=== PATIENT | female | born 1935 | race Caucasian/White ===

== ENCOUNTER 2024-11-23 16:06 | Inpatient (IN) | payer MEDICARE, OTHER ==
[~2024-11-23] VITALS: Ht 170.2 cm; Wt 63.4 kg
[2024-11-23 16:32] LABS: BASOPHILS 0.6 % (0.1-1.2); EOSINOPHILS 3.7 % (0.7-5.8); LYMPHOCYTES 18.8 % (19.3-51.7); MCH 21.2 PG (25.6-32.2); MCHC 27.7 g/dL (32.2-35.5); MCV 76.5 fL (79.4-94.8); MONOCYTES 13.3 % (4.7-12.5); NEUTROPHILS 63.5 % (34.0-71.1); RBC 3.02 M/uL (3.93-5.22)
[2024-11-23 16:52] LABS: ALT (SGPT) 25.0 U/L (14-59); AST (SGOT) 26.0 U/L (15-37); GLOMERULAR FILTRATION RATE,EST 28.0 mL/min (>60); PROTEIN, TOTAL 7.2 g/dL (6.4-8.2); UREA NITROGEN 20.0 mg/dL (7-18)
[2024-11-23] MEDS ORDERED: POTASSIUM CHLORIDE 20 MEQ/15 ML CUP PO ONE (17:15)
[2024-11-23] MEDS ORDERED: FUROSEMIDE 40 MG/4 ML VIAL IV ONE (17:15)
[2024-11-23] MEDS ORDERED: POTASSIUM CHLORIDE 10 MEQ/100 ML BAG IV SCH (17:30)
[2024-11-23] MEDS ORDERED: ACETAMINOPHEN 325 MG TAB PO PRN (18:15)
[2024-11-23] MEDS ORDERED: XARELTO15 MG PO ×2 (18:15→18:25)
[2024-11-23] MEDS ORDERED: COREG25 MG PO (18:25)
[2024-11-23 19:33] VITALS: BP 171/53
[2024-11-23 20:00] VITALS: BP 175/63
[2024-11-23 20:51] LABS: BASOPHILS 0.8 % (0.1-1.2); EOSINOPHILS 3.9 % (0.7-5.8); LYMPHOCYTES 16.4 % (19.3-51.7); MCH 21.3 PG (25.6-32.2); MCHC 28.1 g/dL (32.2-35.5); MCV 76.0 fL (79.4-94.8); MONOCYTES 11.7 % (4.7-12.5); NEUTROPHILS 66.9 % (34.0-71.1); RBC 3.00 M/uL (3.93-5.22)
[2024-11-23 21:00] VITALS: BP 138/83
--- NOTE | 2024-11-23 21:12 | EKG ---
[facility] [address] [facility] [place] [address] Signed Normal sinus rhythm Normal ECG No previous ECGs available Confirmed by lJ Reynoso MD () on 11/23/2024 9:12:10 PM Electronically Signed By: JL REYNOSO MD [id number] PATIENT NAME: ANDRAE MANCUSO Electrocardiogram DATE OF : [birth year] PHYSICIAN: JL REYNOSO MD REPORT #: [id number] REPORT IS CONFIDENTIAL AND NOT TO BE RELEASED WITHOUT AUTHORIZATION
[2024-11-23] MEDS ORDERED: PANTOPRAZOLE SODIUM 40 MG/10 ML VIAL IV SCH (21:22)
[2024-11-23 21:26] LABS: ABO B; ANTIBODY SCREEN NEGATIVE; RH POSITIVE
[2024-11-23 21:28] LABS: IS CROSSMATCH COMPATIBLE
[2024-11-23 21:28] LABS: ABO B; RH POSITIVE
[2024-11-23 22:00] VITALS: BP 153/61
[2024-11-23] MEDS ORDERED: FUROSEMIDE 20 MG/2 ML VIAL IV ONE (22:00)
--- NOTE | 2024-11-23 22:48 | NUR ---
UPDATE: Pt is receiving 1 unit PRBC for hgb of 6.4, started at 2205. Per Dr. Ramos, after this unit of PRBC is complete, give 20mg Lasix and recheck CBC. Pt tolerating well. No s/s transfusion reaction.
[2024-11-23 23:00] VITALS: BP 160/51
[2024-11-24] VITALS (19 sets, daily range): BP systolic 127–165; BP diastolic 39–127
[2024-11-24 00:25] LABS: BASOPHILS 0.9 % (0.1-1.2); EOSINOPHILS 3.4 % (0.7-5.8); LYMPHOCYTES 12.6 % (19.3-51.7); MCH 22.3 PG (25.6-32.2); MCHC 28.7 g/dL (32.2-35.5); MCV 77.7 fL (79.4-94.8); MONOCYTES 11.8 % (4.7-12.5); NEUTROPHILS 70.9 % (34.0-71.1); RBC 3.54 M/uL (3.93-5.22)
[2024-11-24 05:35] LABS: BASOPHILS 0.5 % (0.1-1.2); EOSINOPHILS 2.8 % (0.7-5.8); LYMPHOCYTES 8.3 % (19.3-51.7); MCH 22.1 PG (25.6-32.2); MCHC 28.8 g/dL (32.2-35.5); MCV 76.7 fL (79.4-94.8); MONOCYTES 12.6 % (4.7-12.5); NEUTROPHILS 75.4 % (34.0-71.1); RBC 3.44 M/uL (3.93-5.22)
[2024-11-24 05:50] LABS: ALT (SGPT) 17.0 U/L (14-59); AST (SGOT) 14.0 U/L (15-37); GLOMERULAR FILTRATION RATE,EST 33.0 mL/min (>60); PHOSPHORUS, INORGANIC 3.7 mg/dL (2.5-4.9); PROTEIN, TOTAL 6.9 g/dL (6.4-8.2); UREA NITROGEN 18.0 mg/dL (7-18)
--- NOTE | 2024-11-24 06:36 | NUR ---
SHIFT SUMMARY This pt was admitted to CCU @ 1930 for AHRF/CHF, initially on BIPAP. Pt did not tolerate BIPAP well, switched to Vapotherm, which she tolerated fairly well throughout the shift. Currently on 20L/65% FiO2, SpO2 93%. Hgb 6.4 on admission, this RN reported to MD. 1 unit PRBC transfused, pt tolerated well. Repeat Hgb 7.9. Hgb 7.6 on this morning's labs. One time 20mg IV Lasix given post blood transfusion per MD. HTN noted upon pt's admission, SBP initially 170's. Pt maintained SBP 150's-160's post blood administration, reported to MD. PRN Hydralazine ordered, given, pt tolerated well. Last BP 136/47.
--- NOTE | 2024-11-24 07:07 | NUR ---
REPORT RECEIVED FROM J2EE PROGRAMMER NATALIIA SHAW.
--- NOTE | 2024-11-24 07:43 | NUR ---
UR CLINICAL REVIEW: 2 MN LEANN, MEETS INPT FOR PULMONARY EDEMA AND CHF. IV MEDS, HEART MONITOR, BIPAP/OXYGEN, FURTHER STUDIES NEEDED MEDICARE INPT 11/23/2024 @ 1807 ORDER MATCHES REG NO AUTH REQUIRED PER MEDICARE RULES PLAN TO DC TO HOME WHEN MEDICALLY STABLE.
--- NOTE | 2024-11-24 07:45 | NUR ---
ECHO IS IN THE ROOM AT THIS TIME. PATIENT WITH EYES OPEN AND RESPIRATIONS ARE EVEN AND UNLABORED.
--- NOTE | 2024-11-24 07:50 | NUR ---
PATIENT IS LYING IN BED WITH HOB ELEVATED. FULL ASSESSMENT COMPLETE AND DOCUMENTED IN THE CHART. PATIENT IS ALERT AND ORIENTED TIMES FOUR. PATIENT IS ON THE HEART MONITOR AND IS IN NORMAL SINUS RHYTHM. CARDIAC WITH NORMAL S1 AND S2 ON AUSCULTATION. RADIAL PULSES ARE STRONG BILATERALLY. PEDAL PULSES ARE FAINT BILATERALLY. CAPILLARY REFILL IN THE UPPER AND LOWER EXTREMITIES IS LESS THAN 3 SECONDS BILATERALLY. NO EDEMA NOTED. SENSATION INTACT WITH NO COMPLAINTS OF NUMBNESS OR TINGLING. PATIENT IS ON THE VAPOTHERM WITH 65% FIO2 AND 20 L. LUNG SOUNDS ARE CLEAR IN THE UPPER LOBES WITH CRACKLES IN THE BASES BILATERALLY. PATIENT IS ON A 2 GRAM SODIUM DIET. BOWEL TONES ARE ACTIVE IN ALL FOUR QUADRANTS. NO NASUEA REPORTED WITH MILD ABDOMINAL DISTENTION. PATIENT WITH A PUREWICK IN AND LIGHT YELLOW URINE IN THE CANISTER. PATIENT WITH NO COMPLAINTS OF PAIN. PT AND OT ORDERED. SKIN INTACT. PATIENT STATED NO FURTHER NEEDS AT THIS TIME. CALL LIGHT AND PERSONAL BELONGINGS ARE WITHIN REACH.
--- NOTE | 2024-11-24 08:03 | NUR ---
PATIENT BOOSTED UP IN BED AND SAT UP AND IS EATING BREAKFAST. VITAL SIGNS TAKEN AND DOCUMENTED IN THE CHART. PATIENT STATED NO FURTHER NEEDS AT THIS TIME. CALL LIGHT AND PERSONAL BELONGINGS ARE WITHIN REACH.
--- NOTE | 2024-11-24 08:39 | NUR ---
LAB IS IN THE ROOM AT THIS TIME.
--- NOTE | 2024-11-24 08:57 | NUR ---
PATIENT FAMILY IS IN THE ROOM AT THIS TIME. PATIENT EDUCATED ON CHANGING THE PUREWICK. PATIENT REPORTED WANTING TO WAIT DUE TO VISITORS AT BEDSIDE. PATIENT STATED NO FURTHER NEEDS AT THIS TIME. CALL LIGHT AND PERSONAL BELONGINGS ARE WITHIN REACH.
[2024-11-24] MEDS ORDERED: FUROSEMIDE 40 MG/4 ML VIAL IV SCH (09:00)
[2024-11-24] MEDS ORDERED: ENOXAPARIN SODIUM 30 MG/0.3 ML SYR SUB-Q SCH (09:00)
--- NOTE | 2024-11-24 09:09 | NUR ---
PATIENT IS LYING IN BED WITH HOB ELEVATED. VAPOTHERM IN PLACE. PATIENT WITH THREE VISITORS AT THE BEDSIDE. CALL LIGHT AND PERSONAL BELONGINGS ARE WITHIN REACH.
[2024-11-24] MEDS ORDERED: SYNTHROID137 MCG PO (09:13)
[2024-11-24] MEDS ORDERED: AMLODIPINE BESY10 MG PO (09:13)
[2024-11-24] MEDS ORDERED: ROSUVASTATIN CA10 MG PO (09:14)
[2024-11-24] MEDS ORDERED: TELMISARTAN80 MG PO (09:15)
--- NOTE | 2024-11-24 09:17 | NUR ---
ROUNDED ON THE PATIENT AND PATIENT FAMILY AT THIS TIME.
--- NOTE | 2024-11-24 10:06 | NUR ---
PATIENT IS LYING IN BED WITH HOB ELEVATED. SHEBA CARE COMPLETE WITH A NEW PUREWICK IN PLACE. CANISTER EMPTIED OF 400 ML OF LIGHT YELLOW URINE. PATIENT TOLERATED WELL. PATIENT STATED NO FURTHER NEEDS AT THIS TIME. CALL LIGHT AND PERSONAL BELONGINGS ARE WITHIN REACH.
[2024-11-24] MEDS ORDERED: AMLODIPINE BESYLATE 10 MG TAB PO SCH (10:14)
[2024-11-24] MEDS ORDERED: LEVOTHYROXINE SODIUM 137 MCG TAB PO SCH (10:15)
[2024-11-24] MEDS ORDERED: FUROSEMIDE20 MG PO (11:02)
[2024-11-24] MEDS ORDERED: CRANBERRY500 M3 PO (11:03)
[2024-11-24] MEDS ORDERED: PRESERVISION A1 EAC5 PO (11:03)
[2024-11-24] MEDS ORDERED: VITAMIN D325 MCG PO (11:03)
[2024-11-24] MEDS ORDERED: SUPER B-50 COM1 EAC2 PO (11:04)
--- NOTE | 2024-11-24 11:04 | NUR ---
MED REC COMPLETE
--- NOTE | 2024-11-24 11:10 | NUR ---
PATIENT IS LYING IN BED WITH HOB ELEVATED. PATIENT REMAINS ON THE VAPOTHERM. PATIENT WITH EYES CLOSED AND RESPIRATIONS ARE EVEN AND UNLABORED. CALL LIGHT AND PERSONAL BELONGINGS ARE WITHIN REACH.
--- NOTE | 2024-11-24 11:36 | NUR ---
ALERT IN BED. FORGETFUL, BUT ANSWERS QUESTIONS APPROPRIATELY. LIVES AT [facility], ALONE. HAS NO DME THAT SHE CAN RECAL. STATES HER FAMILY DRIVES HER TO APPOINTMENTS. SHE ALSO STATES HER FAMILY MEMBERS HANDLE HER FINANCES. DC PLAN PENDING FURTHER TREATMENT.
[2024-11-24] MEDS ORDERED: PHARMACY RENAL DOSE ADJUSTMENT 1 DOSE MISC PO SCH (12:00)
--- NOTE | 2024-11-24 12:13 | NUR ---
TRIAL OFF OF HFNC AND PLACED ON 3 LPM NC.
--- NOTE | 2024-11-24 12:39 | NUR ---
PATIENT IS LYING IN BED ON HER RIGHT SIDE AND SPEAKING WITH A VISITOR AT THE BEDSIDE. VAPOTHERM IN PLACE. PATIENT WITH EYES OPEN AND RESPIRATIONS ARE EVEN AND UNLABORED. CALL LIGHT AND PERSONAL BELONGINGS ARE WITHIN REACH.
--- NOTE | 2024-11-24 12:50 | NUR ---
PATIENT IS LYING IN BED WITH HER DAUGHTER SITTING AT BEDSIDE THROUGHOUT THE INTERACTION. PATIENT IS ALERT AND ORIENTED. PATIENT REMAINS ON THE HEART MONITOR AND IS IN NORMAL SINUS RHYTHM. CARDIAC WITH NORMAL S1 AND S2 ON AUSCULTAION. NO EDEMA NOTED. SENSATION INTACT AND PATIENT HAS NO COMPLAINTS OF NUMBNESS OR TINGLING. RADIAL AND PEDAL PULSES ARE STRONG BILATERALLY. CAPILLARY REFILL IN THE UPPER AND LOWER EXTREMITIES IS LESS THAN 3 SECONDS. PATIENT IS NOW ON 4 L NC. LUNG SOUNDS ARE CLEAR IN THE UPPER LOBES WITH CRACKLES IN THE BASES BILATERALLY. PATIENT IS ON A 2 GRAM SODIUM DIET. BOWEL TONES ARE ACTIVE IN ALL FOURE QUADRANTS. PATIENT WITH NO COMPLAINTS OF NAUSEA OR DISTENTION. PATIENT RATED PAIN 1/10 A HEADACHE BUT IS NOT REQUESTING ANYTHING FOR THE PAIN AT THIS TIME DUE TO PATIENT REPORTING :HAVING MIGRAINES AND I KNOW WHAT A 10/10 IS". PATIENT REMAINS WITH THE PUREWICK IN PLACE WITH LIGHT YELLOW URINE IN THE CANISTER. SKIN INTACT. IV SITES REMAIN SALINE LOCKED AND DRESSINGS ARE CLEAN, DRY, AND INTACT. PATIENT AND FAMILY STATED NO FURTHER NEEDS AT THIS TIME. CALL LIGHT AND PERSONAL BELONGINGS ARE WITHIN REACH.
--- NOTE | 2024-11-24 13:00 | NUR ---
VITAL SIGNS TAKEN AND DOCUMENTED IN THE CHART. PATIENT IS LYING IN BED WITH EYES OPEN AND RESPIRATIONS ARE EVEN AND UNLABORED. PATIENT DAUGHTER IS SITTING IN THE CHAIR AT BEDSIDE. PATIENT AND FAMILY STATED NO FURTHER NEEDS AT THIS TIME. CALL LIGHT AND PERSONAL BELONGINGS ARE WITHIN REACH.
--- NOTE | 2024-11-24 13:23 | NUR ---
NOTIFIED OF PATIENT HAVING LOWER LEFT SIDE CHEST PAIN. MD STATED THE PATIENT TOLD HIM WHEN HE ROUNDED ON HER. MD WITH NO FURTHER ORDERS AT THIS TIME. CALL ENDED.
--- NOTE | 2024-11-24 14:02 | NUR ---
PHSICAL THERAPY IS IN THE ROOM AND WORKING WITH THE PATIENT AT THIS TIME.
[2024-11-24 14:26] LABS: BASOPHILS 0.7 % (0.1-1.2); EOSINOPHILS 1.9 % (0.7-5.8); LYMPHOCYTES 8.0 % (19.3-51.7); MCH 22.3 PG (25.6-32.2); MCHC 28.9 g/dL (32.2-35.5); MCV 77.4 fL (79.4-94.8); MONOCYTES 12.0 % (4.7-12.5); NEUTROPHILS 77.1 % (34.0-71.1); RBC 3.76 M/uL (3.93-5.22)
--- NOTE | 2024-11-24 14:29 | NUR ---
INTAKE AND OUTPUT DOCUMENTED IN THE CHART. PATIENT COMPLETE WITH PHYSICAL THERAPY. NO PUREWICK IN PLACE. PATIENT EDUCATED TO CALL WHEN NEEDING TO URINATE. PATIENT EXPRESSED UNDERSTANDING. PATIENT IS SITTING IN THE CHAIR WITH BILATERAL LOWER EXTREMITIES ELEVATED. PATIENT REMAINS ON 4 L NC WITH EYES OPEN AND RESPIRATIONS ARE EVEN AND UNLABORED. BOTTOM/COCCYX WITH NO REDNESS NOTED. NEW BED LINENS PLACED ON THE BED AT THIS TIME. PATIENT STATED NO FURTHER NEEDS AT THIS TIME. CALL LIGHT AND PERSONAL BELONGINGS ARE WITHIN REACH.
--- NOTE | 2024-11-24 15:35 | NUR ---
PATIENT IS LYING IN THE CHAIR WITH BILATERAL LOWER EXTREMITIES ELEVATED. PATIENT IS ON HER RIGHT SIDE WITH EYES CLOSED AND RESPIRATIONS ARE EVEN AND UNLABORED. PATIENT REMAINS ON 5 L NC. CALL LIGHT AND PERSONAL BELONGINGS ARE WITHIN REACH.
--- NOTE | 2024-11-24 16:08 | NUR ---
PATIENT IS SITTING IN THE CHAIR WITH BILATERAL LOWER EXTREMITIES ELEVATED. PATIENT WITH 5L NC IN PLACE. PATIENT WITH EYES CLOSED AND RESPIRATIONS ARE EVEN AND UNLABORED. CALL LIGHT AND PERSONAL BELONGINGS ARE WITHIN REACH.
--- NOTE | 2024-11-24 16:35 | NUR ---
PATIENT PIVOTED TO THE BEDSIDE COMMODE. PATIENT VOID 350 ML OF LIGHT YELLOW URINE. PATIENT ORAL TEMPERATURE WAS 98.1 F. PATIENT THEN TRANSFERRED BACK TO BED BY PIVOTING. PATIENT TOLERATED WELL REMAINING ON THE 5L NC. PATIENT REMAINS ALERT AND ORIENTED. PATIENT LAST BM WAS 11/23/24. PATIENT IS ON THE HEART MONITOR AND IS IN NORMAL SINUS RHYTHM. RADIAL AND PEDAL PULSES ARE STRONG BILATERALLY. NO EDEMA NOTED. SENSATION INTACT WITH NO COMPLAINTS OF NUMBNESS OR TINGLING. CAPILLARY REFILL IN THE UPPER AND LOWER EXTREMITIES IS LESS THAN 3 SECONDS BILATERALLY. LUNG SOUNDS ARE CLEAR IN THE UPPER LOBES WITH CRACKLES IN THE BASES BILATERALLY. PATIENT WITH NO COMPLAINTS OF SOB. PATIENT IS ON A 2 GRAM SODIUM DIET. BOWEL TONES ARE ACTIVE IN ALL FOUR QUADRANTS. PATIENT WITH NO COMPLAINTS OF NAUSEA OR ABDOMINAL DISTENTION. NO PUREWICK IN PLACE. PATIENT WITH NO SCD'S DUE TO REFUSING LAST NIGHT. PATIENT WITH NO COMPLAINTS OF PAIN. IV SITES REMAIN SALINE LOCKED. IV DRESSINGS ARE CLEAN, DRY, AND INTACT. SKIN WITH SMALL SCATTERED BRUISING NOTED TO THE BILATERAL ARMS. PATIENT PROVIDED TWO WARM BLANKETS AT THIS TIME. PATIENT STATED NO FURTHER NEEDS AT THIS TIME. CALL LIGHT AND PERSONAL BELONGINGS ARE WITHIN REACH.
--- NOTE | 2024-11-24 17:10 | NUR ---
PATIENT IS LYING IN BED ON HER RIGHT SIDE WITH EYES CLOSED AND RESPIRATIONS ARE EVEN AND UNLABORED. PATIENT REMAINS ON NC AND HEART MONITOR. CALL LIGHT AND PERSONAL BELONGINGS ARE WITHIN REACH.
--- NOTE | 2024-11-24 18:07 | NUR ---
PATIENT IS LYING IN BED ON HER RIGHT SIDE WITH EYES CLOSED AND RESPIRATIONS ARE EVEN AND UNLABORED. PATIENT IS ON 5 L NC. CALL LIGHT AND PERSONAL BELONGINGS ARE WITHIN REACH.
--- NOTE | 2024-11-24 20:00 | NUR ---
PATIENT SCARED BY FIRE DRILL ALARM. REQUIRED REORIENTATION DUE TO SLEEPING AND BEING AWAKEN SUDDENLY. PATIENT WAS UNSURE OF SURROUNDINGS, TIME OF DAY, OR EVENTS LEADING TO HOSPITAL. PATIENT EASILY RE ORIENTED BUT REMAINS SLIGHTLY ANXIOUS. PROVIDED PATIENT WITH A SNACK PER REQUEST. PATIENT SITTING UP AT EDGE OF BED AT THIS TIME. PATIENT VERBALIZED UNDERSTANDING OF NOT GETTING OUT OF BED OR STANDING WITHOUT STAFF ASSIST. CALL LIGHT IN REACH.
--- NOTE | 2024-11-24 20:30 | NUR ---
PATIENT PROVIDED EVENING MEDS. PATIENT DENIED FEELING PAIN OR SOB. PATIENT LUNG SOUNDS ARE CLEAR IN UPPER LOBES; FINE CRACKLES IN MARISELA BASES. MORE ON THE RIGHT. PATIENT TOLERATING 3L NC. NO EDEMA NOTED. IV SITE WNL. DENIED GI UPSET. PATIENT REFUSES SCDs DUE TO MAKING HER UNCOMFORTABLE. PATIENT ASSISTED BACK INTO BED AND LIGHTS ARE DIMMED. BED ALARM ACTIVE. CALL LIGHT IN REACH.
--- NOTE | 2024-11-24 23:28 | NUR ---
PATIENT UP TO BSC. PATIENT TOLERATED WELL. IS FORGETFUL BUT EASILY REORIENTED. PATIENT VOIDED AND RETURNED TO BED WITHOUT CONCERN. VS STABLE. DENIED FEEL SOB. VS STABLE. BED ALARM ACTIVE. REMINDED PATIENT TO USE CALL LIGHT.
[2024-11-25] VITALS (7 sets, daily range): BP systolic 123–143; BP diastolic 41–92
--- NOTE | 2024-11-25 02:00 | NUR ---
PATIENT APPEARS TO BE IN DEEP SLEEP; Sp02 83-86% ON 3L NC. TITRATED TO 4L NC AND ELEVATED HOB. Sp02 IMPROVED TO > 88%
--- NOTE | 2024-11-25 04:00 | NUR ---
PATIENT APPEARS RESTFUL. TOLERATING 4L NC. VS STABLE.
--- NOTE | 2024-11-25 05:00 | NUR ---
PATIENT SITTING UP TO EDGE OF BED. PATIENT DISORIENTED AND AWARE THAT SHE IS CONFUSED. RE ORIENTED TO SURROUNDINGS, TIME OF DAY AND SITUATION. LAB IN FOR MORNING DRAW.
[2024-11-25 05:24] LABS: BASOPHILS 0.6 % (0.1-1.2); EOSINOPHILS 3.1 % (0.7-5.8); LYMPHOCYTES 12.9 % (19.3-51.7); MCH 22.3 PG (25.6-32.2); MCHC 29.0 g/dL (32.2-35.5); MCV 76.8 fL (79.4-94.8); MONOCYTES 13.4 % (4.7-12.5); NEUTROPHILS 69.6 % (34.0-71.1); RBC 3.28 M/uL (3.93-5.22)
--- NOTE | 2024-11-25 05:44 | NUR ---
PATIENT UP TO CHAIR WITH ASSIST FROM FLOAT RN. PATIENT DESAT ON 4L NC TO 85%. PATIENT DENIES FEELING SOB. ENCOURAGED DEEP BREATHS THROUGH HER NOSE. TITRATED TO 6L NC FOR A FEW MINS AFTER ACTIVITY AND THEN BACK TO 4L NC. Sp02 90-92%.
[2024-11-25 05:45] LABS: ALT (SGPT) 16.0 U/L (14-59); AST (SGOT) 14.0 U/L (15-37); GLOMERULAR FILTRATION RATE,EST 34.0 mL/min (>60); PROTEIN, TOTAL 6.4 g/dL (6.4-8.2); UREA NITROGEN 18.0 mg/dL (7-18)
[2024-11-25 06:45] LABS: FOLATE,SERUM >22.3 ng/mL (>=5.9)
--- NOTE | 2024-11-25 07:28 | NUR ---
REPORT RECEIVED FROM EMANUEL WILLIAM. PT RESTING IN CHAIR, EYES CLOSED, RESP EVEN AND UNLABORED, HR 60'S, SPO2 97% AND RR 17.
--- NOTE | 2024-11-25 08:06 | NUR ---
DISCHARGE REVIEW: CONTINUED NEED FOR OXYGEN, IV LASIX, ECHO, TREND LABS, POTENTIAL SURGICAL CONSULT WITH POTENTIAL EGD VS COLONOSCOPY FOR ANEMIA PLAN TO RETURN TO APARTMENT PLAN TO DC IN 1-2 DAYS ADD: 11/26-11/27/24
[2024-11-25] MEDS ORDERED: PANTOPRAZOLE SODIUM 40 MG TABEC PO SCH (09:00)
--- NOTE | 2024-11-25 09:11 | NUR ---
IN DISCUSS PLAN OF CARE WITH PT AND HER DAUGHTER.
--- NOTE | 2024-11-25 10:12 | NUR ---
ALERT IN RECLINER. DR. REYNOSO AND THIS NURSE IN TO SPEAK WITH PATIENT REGARDING POLST FORM. AFTER A DISCUSSION REGARING POST FORM AND EXPLAINATION. STATES SHE DOES NOT WANT TO SIGN OR HAVE A POLST FORM IN PLACE SHE FEELS IT'S ALL DEPENDENT ON SITUATION AND SHE FEELS FAMILY WOULD HAVE INPUT BASED ON DIFFERENT SCENARIOS WELL. DOES STATE THAT SHE WOULD NOT WANT CPR AND LIMITED TREATMENT DURING CONVERSATION. POLST NOT COMPLETED DUE TO PATIENT REQUEST.
--- NOTE | 2024-11-25 11:20 | NUR ---
VISITED DURING SPIRITUAL CARE ROUNDS. PT APPEARED TO BE SLEEPING. DID NOT DISTURB. PROVIDED PRAYER.
--- NOTE | 2024-11-25 12:00 | NUR ---
PT AMBULATING THE HALLS WITH PHYSICAL THERAPY, HR REMAINS 70'S SINUS RHYTHM, PT THEN SAT BACK IN CHAIR TO EAT LUNCH. FAMILY IN TO VISIT PT.
[2024-11-25 12:22] LABS: BASOPHILS 0.5 % (0.1-1.2); EOSINOPHILS 2.4 % (0.7-5.8); LYMPHOCYTES 11.9 % (19.3-51.7); MCH 22.4 PG (25.6-32.2); MCHC 28.9 g/dL (32.2-35.5); MCV 77.6 fL (79.4-94.8); MONOCYTES 12.9 % (4.7-12.5); NEUTROPHILS 72.0 % (34.0-71.1); RBC 3.52 M/uL (3.93-5.22)
[2024-11-25] MEDS ORDERED: POLYETHYLENE GLYCOL 3350 1 PACKET PO SCH (12:37)
--- NOTE | 2024-11-25 13:37 | NUR ---
LONG CONVERSATION WITH MATILDE, DAUGHTER, REGARDING PT RECOMMENDATION OF SNF. DURING 1ST CONVERSATION SHE FELT [facility] WOULD BE OK. UPON FURTHER CONVERSATION AND QUESTIONS ANSWERED, REQUESTS PATIENT RETURN TO APARTMENT WITH HOME HEALTH, [facility] REQUESTED. STATES PATIENT'S SPOUSE WILL BE WITH HER AND MATILDE WILL GO IN FOR A FEW DAYS TO AMBULATE WITH PATIENT IN HER APARTMENT. ALSO DISCUSSED IMM LETTER WITH PATIENT AND MATILDE. MATILDE SIGNED FOR PATIENT. STATES SHE IS GOING TO BRING COPY OF POA PAPERWORK FOR PATIENT'S CHART.
--- NOTE | 2024-11-25 14:32 | NUR ---
PTS FAMILY HAS NOW LEFT, PT REMAINS SITTING UP IN CHAIR, RESTING WITH EYES CLOSED, RESP EVEN AND UNLABORED.
--- NOTE | 2024-11-25 16:30 | NUR ---
PT INC OF URINE, ATTENDS CHANGED, DENIES NEEDS, REMAINS UP IN CHAIR, WAITING FOR DINNER.
--- NOTE | 2024-11-25 18:00 | NUR ---
PT UP TO BATHROOM AND THEN BACK TO BED, DENIES NEEDS.
--- NOTE | 2024-11-25 19:30 | NUR ---
SHIFT REPORT RECEIVED. PATIENT RESTING IN BED. EYES CLOSED. CALL LIGHT IN REACH. BED ALARM ON.
--- NOTE | 2024-11-25 21:00 | NUR ---
ASSISTED PATIENT UP TO THE BATHROOM. PATIENT USES FWW WELL AND STEADY ON FEET. PATIENT VOIDED AND RETURNED TO BED. SCHEDULED MEDS PROVIDED PER ORDER. PATIENT TOLERATING 2L NC. ASSISTED TO POSITION FOR COMFORT. CALL LIGHT IN REACH. BED ALARM ACTIVE.
[2024-11-25 23:35] LABS: IRON BINDING CAPACITY TOTAL 335 ug/dL (240-450); IRON,SERUM OR PLASMA 24 ug/dL (28-170); TRANSFERRIN SATURATION 7 %sat (20-50)
[2024-11-26] VITALS (11 sets, daily range): BP systolic 120–145; BP diastolic 39–55
--- NOTE | 2024-11-26 00:19 | NUR ---
patient up to the bathroom. bed alarm alerted staff. patient assisted with fww. steady on her feet. patient voided and returned to bed. agrees that she will call for assistance but admits she forgets before sitting up when she first wakes up. bed alarm active. call light in reach.
--- NOTE | 2024-11-26 04:09 | NUR ---
PATIENT SETS OFF BED ALARM. SITTING UP TO EDGE OF BED WITHOUT CALLING. ASSISTED PATIENT TO AMBULATE TO THE BATHROOM WITH FWW. PATIENT IS STEADY ON HER FEET. PATIENT VOIDS. DENIED FEELING SOB. 90% ON ROOM AIR AFTER ACTIVITY. VS STABLE. PATIENT BACK TO BED. REMINDED OF CALL LIGHT. BED ALARM ACTIVE.
[2024-11-26 05:15] LABS: BASOPHILS 0.7 % (0.1-1.2); EOSINOPHILS 3.7 % (0.7-5.8); LYMPHOCYTES 13.6 % (19.3-51.7); MCH 22.6 PG (25.6-32.2); MCHC 28.9 g/dL (32.2-35.5); MCV 78.3 fL (79.4-94.8); MONOCYTES 14.4 % (4.7-12.5); NEUTROPHILS 67.3 % (34.0-71.1); RBC 3.23 M/uL (3.93-5.22)
[2024-11-26 05:31] LABS: ALT (SGPT) 11.0 U/L (14-59); AST (SGOT) 12.0 U/L (15-37); GLOMERULAR FILTRATION RATE,EST 35.0 mL/min (>60); PROTEIN, TOTAL 6.5 g/dL (6.4-8.2); UREA NITROGEN 20.0 mg/dL (7-18)
--- NOTE | 2024-11-26 06:30 | NUR ---
PATIENT TOLERATING ROOM AIR. VS STABLE. RESTING IN BED. DENIES NEEDS. CALL LIGHT IN REACH. BED ALARM ACTIVE.
--- NOTE | 2024-11-26 07:22 | NUR ---
REPORT RECEIVED FROM EMANUEL WILLIAM. PT IS RESTING IN BED AWAKE AND REPOSITIONING HERSELF, REPORTS LOWER BACK PAIN. RESP UNLABORED, RR 15, SPO2 94% ON ROOM AIR HR LOW 60'S SINUS RHYTHM. PT STATES SHE WOULD LIKE SOME TYLENOL FOR HER BACK PAIN.
--- NOTE | 2024-11-26 07:42 | NUR ---
PT GIVEN TYLENOL FOR BACK PAIN, THEN ASSISTED UP TO BR TO VOID AND THEN TO SIT UP IN CHAIR. REMAINS ON ROOM AIR. CALL LIGHT IN REACH.
--- NOTE | 2024-11-26 08:53 | NUR ---
DR REYNOSO IN TO SEE PT.
[2024-11-26] MEDS ORDERED: SENNOSIDES/DOCUSATE 1 EA TAB PO SCH (09:00)
--- NOTE | 2024-11-26 11:18 | NUR ---
PT HAS BEEN SITTING IN CHAIR ALL MORNING, NOW WANTS TO GET IN BED FOR A NAP. INTO BATHROOM TO VOID, MISSED HAT, NO BOWEL MOVMENT. BACK TO BED, CALL LIGHT IN REACH.
[2024-11-26 12:05] LABS: BASOPHILS 0.7 % (0.1-1.2); EOSINOPHILS 3.1 % (0.7-5.8); LYMPHOCYTES 11.2 % (19.3-51.7); MCH 22.7 PG (25.6-32.2); MCHC 29.2 g/dL (32.2-35.5); MCV 77.9 fL (79.4-94.8); MONOCYTES 13.2 % (4.7-12.5); NEUTROPHILS 71.6 % (34.0-71.1); RBC 3.21 M/uL (3.93-5.22)
[2024-11-26] MEDS ORDERED: FUROSEMIDE 40 MG TAB PO ONE (15:45)
--- NOTE | 2024-11-26 16:30 | NUR ---
REPORT GIVEN TO CALI WILLIAM AND PT TRANSFERRED TO MED SURG DEPARTMENT.
--- NOTE | 2024-11-26 16:42 | NUR ---
Patient to the medical floor. Patient is awake, alert and oriented x3, no acute distress. Vital signs stable, sp02 94% on 2L per cpox. Patient denies shortness of breath. Pt oriented to room and call light. Patient denies needs at this time.
--- NOTE | 2024-11-26 16:53 | NUR ---
DAUGHTER MATILDE CALLED TO UPDATE HER ON PTS TRANFER TO MED SURG FLOOR.
[2024-11-26 18:07] LABS: BASOPHILS 0.5 % (0.1-1.2); EOSINOPHILS 3.4 % (0.7-5.8); LYMPHOCYTES 16.5 % (19.3-51.7); MCH 22.4 PG (25.6-32.2); MCHC 28.5 g/dL (32.2-35.5); MCV 78.5 fL (79.4-94.8); MONOCYTES 15.3 % (4.7-12.5); NEUTROPHILS 64.1 % (34.0-71.1); RBC 3.31 M/uL (3.93-5.22)
[2024-11-26 18:18] LABS: GLOMERULAR FILTRATION RATE,EST 26.0 mL/min (>60); UREA NITROGEN 25.0 mg/dL (7-18)
[2024-11-26] MEDS ORDERED: FERROUS SULFATE 325 MG TAB PO SCH (18:45)
--- NOTE | 2024-11-26 19:14 | NUR ---
RECEIVED REPORT FROM DAY SHIFT RN. PATIENT IS RESTING IN BED. PATIENT DENIES ANY NEEDS AT THIS TIME. CALL LIGHT IN REACH.
--- NOTE | 2024-11-26 20:12 | NUR ---
PATIENTS VITALS TAKEN AND RECORDED. INTAKE AND OUTPUT RECORDED. PATIENT ASSESMENT COMPLETED. PATIENT IS ON CPOX. PATIENT IS ON 2L VIA NC. RT IN ROOM AND TITRATED PATIENT TO 1L VIA NC. PATIENT IS ON TELE #3 AND IS NOTED TO BE SR. PATIENT DENIES ANY PAIN OR SOB. PATIENTS IV'S X2 FLUSHED AND SL PER ORDER. PATIENTS PM MEDS GIVEN PER ORDER. PATIENT DENIES ANY FURTHER NEEDS. CALL LIGHT IN REACH. BED ALARM ON FOR SAFETY.
--- NOTE | 2024-11-26 20:29 | NUR ---
MATTHEW IS CURRENTLY ON A 1L NC. RT TITRATED HER FROM 2L NC TO A 1L NC. MATTHEW STATES THAT SHE DOES NOT USE HOME OXYGEN OR CPAP/BIPAP, NOR DOES SHE USE ANY INHALED RESPIRATORY MEDICATIONS.
--- NOTE | 2024-11-26 21:08 | NUR ---
PATIENT UP TO THE BT A SBA W/FWW. PATIENT ABLE TO VOID. PATIENT IS BACK IN BED RESTING. PATIENT DENIES ANY PAIN OR SOB. PAIENT REMAINS ON 1L VIA NC. PATIENT HAS CPOX IN USE. PATIENT PROVIDED WARM BLANKET. PATIENT FARHANA ANY FURTHER NEEDS. CALL LIGHT IN REACH. BED ALARM ON FOR SAFETY.
--- NOTE | 2024-11-26 22:07 | NUR ---
PATIENTS BED ALARM ALERTED STAFF. PATIENT SITTING UP IN BED. PATIENT STATED "I AM SORRY I FORGOT WHERE I WAS AND NEED HELP STRAIGHTENING MY BED". PATIENT ASSISTED TO FIX BLANKETS. WARM BLANKET PROVIDED. PATIENT REMAINS ON 1L VIA NC. CPOX IN USE. PATIENT DENIES ANY FURTHER NEEDS. CALL LIGHT IN REACH. BED AALARM ON FOR SAFETY.
--- NOTE | 2024-11-26 23:21 | NUR ---
PATIENTS BED ALARM ALERTED STAFF. PATIENT UP TO BR A SBA W/FWW. PATIENT ABLE TO VOID. PATIENT IS BACK IN BED RESTING. PATIENT DENIES ANY FURTHER NEEDS. CALL LIGHT IN REACH. BED ALARM ON FOR SAFETY.
[2024-11-27] VITALS (10 sets, daily range): BP systolic 113–135; BP diastolic 43–69
--- NOTE | 2024-11-27 00:04 | NUR ---
PATIENT IS RESTING IN BED ON LEFT SIDE WITH EYES CLOSED, CPOX READINGS ARE WNL. NAD NOTED. CALL LIGHT IN REACH. BED ALARM ON FOR SAFETY.
--- NOTE | 2024-11-27 02:07 | NUR ---
PATIENTS ALARM ALERTED STAFF. PATIENT ASSISTED TO BR A SBA W/FWW. PATIENT ABLE TO VOID. PATIENT IS BACK IN BED RESTING. PATIENT DENIES ANY SOB MA PAIN. PATIENT REMAINS ON 1L VIA NC. CPOX IN USE. PATIENT DENIES ANY FURTHER NEEDS. CALL LIGHT IN REACH. BED ALARM ON FOR SAFETY.
--- NOTE | 2024-11-27 04:00 | NUR ---
PATIENT IS RESTING IN BED WITH EYES CLOSED, CPOX READINGS ARE WNL. NAD NTOED. CALL LIGHT IN REACH. BED ALARM ON FOR SAFETY.
--- NOTE | 2024-11-27 04:36 | NUR ---
PATIENTS CPOX ALARMING. PATIENT ASSISTED TO UNTANGLE CABLES AND BLANKETS. PATIENTS VITALS TAKEN AND RECORDED. INTAKE AND OUTPUT RECORDED. FRESH ICE WATER PROVIDED. PATIENT DENIES ANY FURTHER NEEDS. CALL LGHT IN REACH. BED ALARM ON FOR SAFETY.
[2024-11-27 05:15] LABS: BASOPHILS 0.8 % (0.1-1.2); EOSINOPHILS 4.2 % (0.7-5.8); LYMPHOCYTES 15.8 % (19.3-51.7); MCH 22.7 PG (25.6-32.2); MCHC 29.0 g/dL (32.2-35.5); MCV 78.3 fL (79.4-94.8); MONOCYTES 14.4 % (4.7-12.5); NEUTROPHILS 64.4 % (34.0-71.1); RBC 3.22 M/uL (3.93-5.22)
[2024-11-27 05:40] LABS: ALT (SGPT) 12.0 U/L (14-59); AST (SGOT) 11.0 U/L (15-37); GLOMERULAR FILTRATION RATE,EST 30.0 mL/min (>60); PROTEIN, TOTAL 6.5 g/dL (6.4-8.2); UREA NITROGEN 23.0 mg/dL (7-18)
--- NOTE | 2024-11-27 05:46 | NUR ---
PATIENT UP TO BR WITH CHIEF DATA OFFICER. PATIENT ABLE TO VOID. PATIENT IS BACK IN BED RESTING. DW OBTAINED AND RECORDED. CHIEF DATA OFFICER REMAINS IN ROOM WITH PATIENT.
--- NOTE | 2024-11-27 05:56 | NUR ---
PATIENT WAS ASSISTED SBA TO THE BATHROOM. A STANDING WEIGHT WAS GOTTEN. PATIENT IS LAYING IN BED WITH CALL LIGHT IN REACH AND NO FURTHER NEEDS AT THIS TIME.
--- NOTE | 2024-11-27 07:01 | NUR ---
Pt report received from NATALIIA Kohler. Pt is resting on her right side in bed, eyes closed, breathing is regular, even and non-labored. Side rails up x4, call light in reach, white board in reach.
[2024-11-27] MEDS ORDERED: POTASSIUM CHLORIDE 10 MEQ TABCR PO ONE (09:00)
--- NOTE | 2024-11-27 09:20 | NUR ---
HOURLY ROUNDING. PATIENT LAYING IN BED, BOARD UPDATED NO REQUEST AT THIS TIME. VITALS ARE COMLETED AND DOC
--- NOTE | 2024-11-27 12:35 | NUR ---
HOURLY ROUNDING. PATIENT JIST FINISHED EATING, THINKING OF TAKING A NAP. NO REQUEST FROM PATIENT WATER CUP HAS BEEN FILLED
--- NOTE | 2024-11-27 17:01 | NUR ---
With pt to ambulate hallway. Pt was able to walk down to the fire doors and back with FWW, SBA, SPO2 remained between 89-93% on room air. When she got back to bed she states she felt fatigued and a little winded but her SPO2 on CPOX was 92% and she was able to calm her breathing by breathing in slow and deep in to her nose and out through her mouth. Pt dinner tray in the room. Assisted pt with setting up for dinner. Pt denies further needs at this time. Call light in reach.
[2024-11-27 18:04] LABS: BASOPHILS 0.6 % (0.1-1.2); EOSINOPHILS 3.2 % (0.7-5.8); LYMPHOCYTES 16.8 % (19.3-51.7); MCH 22.4 PG (25.6-32.2); MCHC 28.5 g/dL (32.2-35.5); MCV 78.6 fL (79.4-94.8); MONOCYTES 12.5 % (4.7-12.5); NEUTROPHILS 66.7 % (34.0-71.1); RBC 3.70 M/uL (3.93-5.22)
--- NOTE | 2024-11-27 18:15 | NUR ---
HOURLY ROUNDING. PATIENT SITTING IN BED, NO REQUEST BUT JUST HELP STRAIGHTENING OUT HER COVERS. PATIENT IS VERY KIND. CALL LIGHT PLACED WITHIN REACH
--- NOTE | 2024-11-27 20:00 | NUR ---
Patient awake, alert to self and place. Patient denies pain at this time. Vital signs are stable, sp02 90% on room air per cpox, respirations non labored. Patient denies shortness of breath at tbis time. Bed alarm intact, pt insructed to call if she needs asssistance.
--- NOTE | 2024-11-27 20:24 | NUR ---
BACILIO IS ON ROOM AIR APPEARING TO GET READY TO GO TO SLEEP. RT EXPLAINED THAT IF SHE HEARS THE CPOX BEEP TO TAKE A FEW DEEP BREATHES TO BRING HER SPO2 UP SO THAT WE DO NOT HAVE TO PLACE HER BACK ON OXYGEN.
--- NOTE | 2024-11-27 22:02 | NUR ---
Patient resting in bed, eyes closed, respirations non labored. Bed alarm intact.
--- NOTE | 2024-11-27 23:46 | NUR ---
Patient up to restroom to void then back to bed. Bed alarm intact. Patient denies further needs.
[2024-11-28 02:05] VITALS: BP 136/41
[2024-11-28 02:27] VITALS: BP 136/41
--- NOTE | 2024-11-28 03:10 | NUR ---
REPORT RECIEVED FROM NATALIIA LEIVA. PATIENT RESTING IN BED, REQUESTING TO USE BATHROOM. THIS RN ASSISTED PATIENT UP TO BATHROOM VIA 1PR ASSIST WITH THE FWW. PATIENT BACK IN BED, BED ALARM ACTIVATED. PATIENT WITHOUT FURTHER NEEDS AT THIS TIME. CALL LIGHT AND PERSONAL BELONGINGS ARE WITHIN REACH.
--- NOTE | 2024-11-28 03:27 | NUR ---
BACILOI IS ASLEEP ON ROOM WITHOUT THE CPOX ON. RT FOUND CPOX OFF, SO THE ORDER WAS DC'ED.
--- NOTE | 2024-11-28 04:35 | NUR ---
PATIENT CALLED REPORTING "IT FEELS LIKE SOMEONE IS PINCHING MY NOSE AND MAKING IT HARD TO BREATHE" PATIENT OXYGEN SATURATION EVALUATED AND WAS 97% ON ROOM AIR. PATIENT REQUESTING "SOME VICKS CAUSE THAT'S WHAT I USE AT HOME". LAVENDAR PACK GIVEN. PATIENT WITHOUT FURTHER NEEDS AT THIS TIME. CALL LIGHT AND PERSONAL BELONGINGS ARE WITHIN REACH.
[2024-11-28 05:44] LABS: BASOPHILS 0.7 % (0.1-1.2); EOSINOPHILS 4.3 % (0.7-5.8); LYMPHOCYTES 16.6 % (19.3-51.7); MCH 22.6 PG (25.6-32.2); MCHC 29.1 g/dL (32.2-35.5); MCV 77.7 fL (79.4-94.8); MONOCYTES 14.6 % (4.7-12.5); NEUTROPHILS 63.5 % (34.0-71.1); RBC 3.36 M/uL (3.93-5.22)
[2024-11-28 06:03] LABS: ALT (SGPT) 13.0 U/L (14-59); AST (SGOT) 17.0 U/L (15-37); GLOMERULAR FILTRATION RATE,EST 34.0 mL/min (>60); PROTEIN, TOTAL 6.8 g/dL (6.4-8.2); UREA NITROGEN 23.0 mg/dL (7-18)
[2024-11-28 06:29] VITALS: BP 129/46
--- NOTE | 2024-11-28 07:10 | NUR ---
Pt report received from NATALIIA Berg. Pt is resting supine in bed, eyes closed, breathing is regular, even, and non-labored. Call light in reach.
[2024-11-28 09:10] VITALS: BP 149/42
--- NOTE | 2024-11-28 09:11 | NUR ---
HOURLY ROUNDING. PATIENT IS SITTING IN BED, NO REQUEST AT THIS TIME. PATIENT MENTIONED, BEING UPSET THAT HER IS IN THE CCU. CALL LIGHT PLACED WIHTIN REACH
[2024-11-28 09:30] VITALS: BP 149/42
--- NOTE | 2024-11-28 09:41 | NUR ---
INTO SEE PATIENT. MEDICARE LETTER REVIEWED. PATIENT WILL GO HOME WITH FAMILY WHEN MEDICALLY CLEARED. NO FUTHER NEEDS.
--- NOTE | 2024-11-28 10:27 | NUR ---
In pt's room to do CHF education. Pt resting in bed. Pt has some hx of dementia. Edcuation completed. Getting with the Guidelines heart failure booklet left at bedside. All questions pt had were answered. Daughter at bedside. Pt and daughter have no questions at this time. Pt aware if she has any other questions, I would return to room to answer any questions.
[2024-11-28] MEDS ORDERED: FERROUS SULFAT325 M2 PO (11:12)
[2024-11-28] MEDS ORDERED: COREG25 MG PO (11:13)
[2024-11-28] MEDS ORDERED: FUROSEMIDE20 MG PO (11:14)
[2024-11-28] MEDS ORDERED: PANTOPRAZOLE SO40 MG PO (11:15)
[2024-11-28 12:26] VITALS: BP 149/48
--- NOTE | 2024-11-28 13:06 | NUR ---
CHART FAXED TO [facility]
== END 2024-11-28 12:30 | disposition home or self-care (01) | DRG 291 ==
LOC: ED 16:06 → MS 18:52 → CCU 18:52 → MS 11-26 16:30
PROVIDERS: Emergency Medicine; ADMIT Family Medicine; ATTEND Family Medicine
PROC: 30233N1 Transfusion of Nonautologous Red Blood Cells into Peripheral Vein, Percutaneous Approach (ICD-10-PCS; principal; 2024-11-23)
PROC: 5A09357 Assistance with Respiratory Ventilation, Less than 24 Consecutive Hours, Continuous Positive Airway Pressure (ICD-10-PCS; principal; 2024-11-23)
DX: I50.33 Acute on chronic diastolic (congestive) heart failure (principal); J96.01 Acute respiratory failure with hypoxia; N17.9 Acute kidney failure, unspecified; I48.91 Unspecified atrial fibrillation; Z66 Do not resuscitate; D64.9 Anemia, unspecified; G30.0 Alzheimer's disease with early onset; E03.9 Hypothyroidism, unspecified; I08.3 Combined rheumatic disorders of mitral, aortic and tricuspid valves; I37.1 Nonrheumatic pulmonary valve insufficiency; Z90.49 Acquired absence of other specified parts of digestive tract; Z82.49 Family history of ischemic heart disease and other diseases of the circulatory system; Z98.891 History of uterine scar from previous surgery; Z79.01 Long term (current) use of anticoagulants; Z79.899 Other long term (current) drug therapy; Z88.5 Allergy status to narcotic agent; Z88.8 Allergy status to other drugs, medicaments and biological substances
CPT/HCPCS: 36415; 36430; 51702; 71045; 80048; 80053; 82607; 82728; 82746; 82803; 83550; 83735; 83880; 84100; 84443; 84484; 85025; 86850; 86900; 86901; 86922; 93005; 93010; 93306; 94660; 94667; 94668; 94762; 94799; 96374; 96375; 96376; 97116; 97161; 97165; 97530; 97535; 99285-25; A9270; J0360; J1938; J2470; J3480; P9016